=== PATIENT | male | born 1940 | race Caucasian/White ===

== ENCOUNTER 2016-04-18 13:50 | Outpatient (CLI) | payer MEDICARE, OTHER ==
[2013-02-02 22:13] VITALS: BP 161/81
[2016-04-18 14:08] LABS: BASOPHILS % 0.2 (0.0-1.5); LYMPHOCYTES # 2.4 # k/uL (0.6-4.0); MEAN CORPUSCULAR HEMOGLOBIN 33.3 pg (28.0-34.0); MONOCYTES # 0.3 # k/uL (0.0-0.9); MONOCYTES % 4.4 % (0.0-11.0); NEUTROPHILS # 4.5 # k/uL (1.4-7.7)
[2016-04-18 14:32] LABS: eGFR (African) > 60; eGFR (Non-African) > 60
--- NOTE | 2016-04-19 00:05 | Diagnostic Imaging Report ---
Report Submission Date: Apr 18, 2016 7:40:11 PM [employer] REPA[employer]ER Patient ~ Study Name: DB OLSON ~ Date: Apr 18, 2016 3:32:18 PM [employer] REPAIRER ~ Modality Type: CT\SR Gender: M ~ Description: CT ABD & PELVIS W/ CON : 40 ~ Institution: [facility] Physician: LESTER BRODERICK ~ ~ ~ ~ CT abdomen and pelvis with IV contrast Clinical history: Epigastric pain with nausea and constipation 90 mL omnipaque 300 Radiation dose DLP [id number] There is a cirrhotic looking liver with hepatomegaly and large left lobe of the liver. Normal size spleen. Status post cholecystectomy. Normal pancreas and adrenal glands. 2 cm simple cyst in the upper pole of the left kidney. A few small lymph nodes in the retroperitoneal space with vascular calcification without aneurysm. Mild ileus in the upper abdomen. No bowel obstruction. Mild edema of the cecum. Few diverticula along the sigmoid colon . large prostate. Impression: Significant hepatomegaly with cirrhotic looping liver Normal size spleen, no ascites Simple cyst of the left kidney Few small lymph nodes in the peritoneal space Mild edema along the cecum could be colitis No bowel obstruction, no free fluid or free air in the abdomen or pelvis Diverticulosis of the colon ~ Electronically signed on Apr 18, 2016 7:40:11 PM [employer] REPAIRER by: Jacob MOJICA
== END 2016-04-18 13:52 ==
LOC: LAB 13:50
PROVIDERS: ATTEND Family Medicine
DX: R10.13 Epigastric pain (principal); K76.0 Fatty (change of) liver, not elsewhere classified; R73.9 Hyperglycemia, unspecified; D64.9 Anemia, unspecified; I10 Essential (primary) hypertension
CPT/HCPCS: 36415; 74177; 80053; 83036; 85025; Q9966; A9698

== ENCOUNTER 2016-07-05 12:26 | Outpatient (CLI) | payer MEDICARE, OTHER ==
[2013-02-02 22:13] VITALS: BP 161/81
[2016-07-05 12:56] LABS: BASOPHILS % 0.4 (0.0-1.5); EOSINOPHILS % 1.2 % (0.0-6.8); MEAN CORPUSCULAR HEMOGLOBIN 31.9 pg (28.0-34.0); MEAN CORPUSCULAR VOLUME 100.1 fl (80.0-100.0); MONOCYTES % 4.9 % (0.0-11.0); NEUTROPHILS # 5.1 # k/uL (1.4-7.7)
[2016-07-05 13:20] LABS: eGFR (African) > 60; eGFR (Non-African) > 60
== END 2016-07-05 12:27 ==
LOC: LAB 12:26
PROVIDERS: ATTEND Physician Assistant
DX: R10.31 Right lower quadrant pain (principal); R10.32 Left lower quadrant pain
CPT/HCPCS: 36415; 80053; 85025

== ENCOUNTER 2016-07-06 10:52 | Outpatient (CLI) | payer MEDICARE, OTHER ==
[2013-02-02 22:13] VITALS: BP 161/81
--- NOTE | 2016-07-06 22:58 | Diagnostic Imaging Report ---
[facility] [address] [facility].[address] [id number] Report Submission Date: July 06, 2016 2:22:56 PM CDT Patient Study Name: DB OLSON Date: July 06, 2016 11:13:01 AM CDT Modality Type: CT\SR Gender: M Description: CT ABD & PELVIS W/ CON : 40 Institution: [facility] Physician RAIMUNDO MAXWELL CT of the abdomen and pelvis with contrast CLINICAL HISTORY: Lower abdominal pain intermittently for 1 year. Contrast administered: 92 mL of Omnipaque. TECHNIQUE: CT of the abdomen and pelvis is performed with intravenous infusion of contrast. Sagittal and coronal reconstructions are performed by the technologist. Comparison is made to a prior study dated 04/18/2016. FINDINGS: There are minimal discoid changes in the right lung base. The visualized lung bases are otherwise clear. Liver is inhomogeneous demonstrates nodular contour consistent with cirrhosis. Focal enhancing lesions in both lobes possibly represent regenerating nodules although possibility of malignancy cannot be excluded. MRI is recommended for better evaluation. There is no pancreatic or adrenal abnormality. The kidneys demonstrate symmetric enhancement. Vascular calcification is present in the abdominal aorta without evidence of aneurysm. There are small retroperitoneal nodes but no significant adenopathy. Bladder is unremarkable. There is no free fluid in the pelvis or abdomen. Scattered diverticula are seen in the descending and sigmoid colon. IMPRESSION: Inhomogeneous liver with nodular contour consistent with cirrhosis. Multiple enhancing lesions in the liver possibly representing regenerating nodules although the possibility of malignancy cannot be excluded. Recommend MRI for better evaluation. Postoperative changes. Vascular calcification. Electronically signed on July 06, 2016 2:22:56 PM CDT by: Jason MOJICA
== END 2016-07-06 10:53 ==
LOC: RAD 10:52
PROVIDERS: ATTEND Physician Assistant
DX: R10.31 Right lower quadrant pain (principal); R10.32 Left lower quadrant pain
CPT/HCPCS: 74177; Q9966

== ENCOUNTER 2016-07-09 11:15 | Outpatient (CLI) | payer MEDICARE, OTHER ==
[2013-02-02 22:13] VITALS: BP 161/81
--- NOTE | 2016-07-10 13:19 | Diagnostic Imaging Report ---
RAIMUNDO MAXWELL [facility] [address] [facility] [place], [place]. [address] Report Submission Date: July 10, 2016 8:42:10 AM CDT Patient Study Name: DB OLSON Date: July 09, 2016 11:56:59 AM CDT Modality Type: MR Gender: M Description: MRI ABDOMEN W & W/O CONTRAST : 40 Institution: [facility] Physician: RAIMUNDO MAXWELL EXAMINATION: MRI abdomen with and without contrast. HISTORY: Cirrhosis with multiple enhancing lesions seen on previous CT of the abdomen and pelvis dated 07/06/2016. TECHNIQUE: Multiplanar multisequential images of the abdomen were obtained prior to and following the uneventful administration of intravenous contrast according to standard multiphase liver protocol. FINDINGS: Correlation is made with previous CT dated 07/06/2016. The liver demonstrates diffuse inhomogeneous appearance consistent with underlying cirrhosis. There is also diffuse nodular surface contour also consistent with underlying cirrhosis. There is mild retraction and geographic leak delineated area of delayed enhancement in the right hepatic lobe consistent with developing confluent fibrosis. Within the posterior aspect of the right hepatic lobe there is a subtle 1.4 cm T1 hyperintense lesion which demonstrates arterial enhancement. However this lesion does not demonstrate washout which would be diagnostic of a hepatocellular carcinoma, this remains indeterminate. Additionally there is numerous mildly T2 hyperintense additional foci of arterial enhancement throughout the right hepatic lobe and left hepatic lobe which do not demonstrate washout on more delayed phase imaging and fades to become isointense to the background liver, findings are again most suggestive of regenerative nodules. The largest of these nodules seen in the inferior aspect of the right hepatic lobe measuring 1.2 cm. Gallbladder is absent. There is no evidence of biliary dilation. The portal vein is patent. The spleen is normal in size. Small renal cysts are present. Diverticular present within the colon. No ascites is identified. IMPRESSION: 1. Diffusely inhomogeneous hepatic parenchyma with diffuse nodular contour and probable area of developing confluent fibrosis within the right hepatic lobe consistent with underlying cirrhosis. 2. Within medial posterior inferior aspect of the right hepatic lobe 1.4 cm T1 hypointense mildly T2 hyperintense lesion which demonstrates arterial enhancement. However this does not demonstrate washout delayed phase imaging and becomes isointense to that of the background liver. This remains indeterminate for malignancy, recommend short interval MRI follow-up to document stability. 3. 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 Electronically signed on July 10, 2016 8:42:10 AM CDT by: Stan MOJICA
== END 2016-07-09 11:25 | disposition home or self-care (01) ==
LOC: RAD 11:15
PROVIDERS: ATTEND Physician Assistant
DX: K76.9 Liver disease, unspecified (principal)
CPT/HCPCS: 74183